=== PATIENT | male | born 1955 | race Caucasian/White ===

== ENCOUNTER → 2017-04-18 | Outpatient (CLI) | payer BC ==
[~2017-04-18] VITALS: Ht 175.3 cm; Wt 91.2 kg
[~2017-04-18] MED LIST: ADULT LOW DOSE81 MG PO; ATROVENT15 ML NS; BUPROPION XL150 MG PO; CARISOPRODOL 3350 MG PO; CELEBREX 200 M200 MG PO; DIAZEPAM 5 MG5 MG PO; FISH OIL 500 M1 EACH PO; FLONASE 0.05%50 MCG NASAL; LEVOTHROID175 MCG PO; LEVOTHYROXINE0.2 M1 PO; LEVOXYL PO; LIALDA1.2 GM PO; LISINOPRIL40 MG PO; LYRICA100 MG PO; LYRICA150 MG PO; MELOXICAM7.5 MG PO; MULTIVITAMINS; NEURONTIN 300300 M1 PO; OMEPRAZOLE20 M2 PO; PREDNISONE 20 M20 M1 PO; PREDNISONE 5 MG5 M1 PO; SKELAXIN 800 M800 M1 PO; TAMSULOSIN HCL0.4 MG PO; TRAMADOL 50 MG50 MG PO; TYLENOL EX-STR500 M2 PO; VITAMIN D3400 UNIT PO; ZYRTEC10 MG PO
--- NOTE | ~2017-04-18 | HPC ---
[facility] [place] [address] PAIN MANAGEMENT CONSULTATION Name: MILLER HOUSE Room #: REG EITAN Guerin#: [id number] Admission: 04/18/17 Attend Phys: Fab Worrell DO Discharge: Date of : 57 Report #: [id number] THIS REPORT FOR: //name// CC: Rocky Worrell DATE OF SERVICE: 04/18/2017 REFERRING PHYSICIAN: Castillo Mcarthur MD CHIEF COMPLAINT: Low back pain, bilateral lower extremity pain with paresthesias. HISTORY OF PRESENT ILLNESS: As you know, the patient is a 61-year-old male originally referred to our clinic by Dr. Mcarthur, his orthopedic surgeon for low back pain, bilateral upper buttock and posterolateral thigh pain. The patient has undergone epidural injections under fluoroscopic guidance with good efficacy. He returns today in followup visit with recurrent pain, now reporting pain score 4/10. He last was seen in our clinic on 01/22/2015. He has been doing fairly well, stating he has been going about his activities of daily living, but then had increasing pain of late with no inciting injury or trauma. He indicates pain is exacerbated with bending, lifting, twisting, sitting in certain positions, and lying down, heat and cold compresses, ice and medications appear to improve pain. He returns today in followup visit requesting epidural injection under fluoroscopic guidance. He is also requesting refills on medications that were provided at last visit. ALLERGIES: AMOXICILLIN, KETOROLAC, HYDROCHLOROTHIAZIDE, and POTASSIUM CLAVULANATE. CURRENT MEDICATIONS: Fluticasone, ipratropium bromide, diazepam, Meloxicam, levothyroxine, Lialda, pregabalin, multivitamin, acetaminophen, tramadol, lisinopril, aspirin, Skelaxin, bupropion, and omeprazole. SOCIAL HISTORY: The patient denies tobacco, alcohol, IV or illicit drug use. He is working, not receiving workmen's compensation, unaccompanied today. IMAGING: No new imaging available. PHYSICAL EXAMINATION: VITAL SIGNS: Blood pressure 131/92, pulse 67, respiratory rate 16 and unlabored, the patient is 98% on room air, height 5 feet 9 inches tall, weight 201 pounds, and BMI calculated 29.7. GENERAL: Well-developed, well-nourished, well-hydrated 61-year-old male, appearing his stated age, placing current pain score at 4/10. [place] [address] PAIN MANAGEMENT CONSULTATION Name: MILLER HOUSE Room #: REG [facility]#: [id number] Admission: 04/18/17 Attend Phys: Fab Worrell DO Discharge: Date of : 57 Report #: [id number] HEENT: Normocephalic, atraumatic. Pupils are equal, round, and reactive to light. Extraocular muscles are intact. Sclerae nonicteric without injection. EXTREMITIES: Show no clubbing, no cyanosis, and no edema. MUSCULOSKELETAL: Lower extremity strength appears equal and symmetrical today 5/5, intact to light touch from L1 through S2 dermatomes. Muscle bulk and tone equal and symmetrical. Seated straight leg raising negative. Supine straight leg raising mildly positive, right greater than left. Marian's test negative. ASSESSMENT: 1. Symptomatic lumbar radiculopathy. 2. Spinal stenosis of lumbar spine, progressively worsening. 3. Displacement of lumbar intervertebral disk with radiculopathy. 4. Lumbosacral spondylosis with radiculopathy. 5. Chronic intractable pain. PLAN: 1. The patient has returned today in followup visit to undergo next in the series of epidural injections under fluoroscopic guidance. The patient has done very well with previous epidural injections, returning today in followup visit to undergo next in the series. He has been advised the risks and benefits of this procedure, these risks include, but are not necessarily limited to bleeding, bruising, infection, worsening of pain, no relief of pain, also risk of temporary or permanent muscle weakness, temporary or permanent nerve damage, possible paralysis and . The patient states understood and wished to proceed. 2. The patient was provided a refill prescription on Meloxicam 7.5 mg 1 tab p.o. b.i.d., I have given the patient #60 tablets, 2 refills. 3. The patient has requested a refill of his diazepam understanding this is not a pain medication, we will provide him with a prescription today, #60 tablets with 1 refill, he then can follow up with his PCP for continuation of this anxiolytic medication. 4. We will see the patient back in followup visit on an as needed basis for possible next in a series of epidural injections. Otherwise, we will see him back for refills of Meloxicam as needed. PROCEDURE NOTE DESCRIPTION OF PROCEDURE: L5-S1 interlaminar epidural steroid injection under fluoroscopic guidance. After obtaining written consent, the patient was taken back to fluoroscopy suite, placed in prone position with pillow under abdomen to decrease lumbar lordosis. Skin overlying lumbosacral area prepped and draped in aseptic fashion. Lumbar intervertebral spaces were identified by AP fluoroscopy. Skin and subcutaneous tissue overlying target site of injection was anesthetized with 3 mL of 1% lidocaine. [address] [address] PAIN MANAGEMENT CONSULTATION Name: MILLER HOUSE Room #: REG [facility] EricRyan#: [id number] Admission: 04/18/17 Attend Phys: Fab Worrell DO Discharge: Date of : 57 Report #: [id number] A 20-gauge 3-1/2-inch Tuohy needle advanced under fluoroscopic guidance towards the epidural space using a paramedian approach. Epidural space identified using loss of resistance to air technique. After negative aspiration for heme or cerebrospinal fluid, 1 mL of Omnipaque was injected. Lumbar epidurogram was confirmed using both AP and lateral fluoroscopy. After negative aspiration for heme or cerebrospinal fluid, 5 mL of a solution containing 2 mL 40 mg per mL, 80 mg total triamcinolone, 3 mL lidocaine 1% injected slowly. Needle retracted penitent[facility], needle tract flushed 3 mL 1% lidocaine. Needle then removed. Sterile bandage placed over injection site, no new motor deficits present in lower extremity following the procedure. The patient tolerated the procedure well, carefully escorted to the recovery room in stable condition. No apparent complications. After meeting discharge criteria, the patient discharged home. By: [id number] Fab Worrell DO /nt
[2017-04-18 08:24] VITALS: BP 131/92
== END | disposition home or self-care (01) ==
LOC: PAIN 07:06
DX: M51.16 Intervertebral disc disorders with radiculopathy, lumbar region (principal); M48.06 Spinal stenosis, lumbar region; M47.27 Other spondylosis with radiculopathy, lumbosacral region; G89.29 Other chronic pain; Z79.899 Other long term (current) drug therapy; Z88.8 Allergy status to other drugs, medicaments and biological substances

== ENCOUNTER → 2017-11-21 | Outpatient (CLI) | payer BC ==
[~2017-11-21] VITALS: Ht 175.3 cm; Wt 92.3 kg
[~2017-11-21] MED LIST changes: +ATORVASTATIN CA40 MG PO
--- NOTE | ~2017-11-21 | HPC ---
[facility] [address] [place] [address] PAIN MANAGEMENT CONSULTATION Name: MILLER HOUSE Room #: REG EITAN Guerin#: [id number] Admission: 11/21/17 Attend Phys: Fab Worrell DO Discharge: Date of : 57 Report #: [id number] THIS REPORT FOR: //name// CC: Rocky Worrell DATE OF SERVICE: 11/21/2017 CHIEF COMPLAINT: Low back pain, bilateral lower extremity pain with paresthesias. HISTORY OF PRESENT ILLNESS: As you know, the patient is a 62-year-old male who returns today in followup visit per the request of his orthopedic surgeon for evaluation for recurrent low back pain, bilateral lower extremity pain with paresthesias. The patient has undergone epidural injections with good benefit in the past. Most recent injection provided 100% improvement in overall pain for greater than 3 months. He has had a slow and progressive return of symptoms over the past 5 months, leading to pain level today of 8/10. He returns stating his pain is chronic in nature, describes the pain as aching and sore. Bending, lifting, twisting, sitting in certain positions exacerbate symptoms. Lying down, cold compresses, heat compresses, ice and medications as well as epidural injections improve pain. He returns requesting epidural injection under fluoroscopic guidance and to receive refills of his Skelaxin and diazepam. ALLERGIES: AMOXICILLIN, KETOROLAC, HYDROCHLOROTHIAZIDE AND POTASSIUM CLAVULANATE. CURRENT MEDICATIONS: Atorvastatin 40 mg per day, meloxicam 7.5 mg twice a day, diazepam 5 mg p.r.n., tamsulosin 0.4 mg once a day, cetirizine 10 mg per day, fluticasone 2 sprays each nostril per day, ipratropium bromide twice a day, levothyroxine 175 mcg per day, Lialda 1.2 grams daily, pregabalin 100 mg once a day, multivitamin 1 tab per day, Tylenol Extra Strength 500 mg 3 times a day, tramadol 50 mg 1-2 tabs every 6 hours p.r.n. for pain, Skelaxin 800 mg per day, aspirin 81 mg per day, Zestril 40 mg per day, bupropion 150 mg once a day, omeprazole 20 mg once a day. SOCIAL HISTORY: The patient denies tobacco, alcohol, IV or illicit drug use. He is working, not receiving workmen's compensation, unaccompanied today. IMAGING: No new imaging available. PHYSICAL EXAMINATION: VITAL SIGNS: Blood pressure 146/75, pulse 86, respiratory rate 16, unlabored. The patient is 95% on room air. Height 5 feet 9 inches tall, weight 203.4 [place] [address] PAIN MANAGEMENT CONSULTATION Name: MILLER HOUSE Room #: REG [facility] Apoorva#: [id number] Admission: 11/21/17 Attend Phys: Fab Worrell DO Discharge: Date of : 57 Report #: [id number] pounds, BMI calculated 30.0. GENERAL: Well-developed, well-nourished, well-hydrated 62-year-old male appearing stated age, placing current pain score at 8/10. HEENT: Normocephalic, atraumatic. Pupils equal, round, reactive to light. EXTREMITIES: Show no clubbing, no cyanosis, no edema. MUSCULOSKELETAL: Lower extremity strength is symmetrical 5/5, intact to light touch from L1 through S2 dermatomes. Muscle bulk and tone equal and symmetrical in lower extremities. Seated straight leg raising negative. Supine straight leg raising mildly positive, right side. Marian test negative. Gait is normal. ASSESSMENT: 1. Symptomatic lumbar radiculopathy. 2. Spinal stenosis of the lumbar spine. 3. Displacement of lumbar intervertebral disk with radiculopathy. 4. Lumbosacral spondylosis with radiculopathy. 5. Chronic intractable pain. PLAN: 1. The patient returns today in followup visit requesting to undergo epidural injection under fluoroscopic guidance. The patient has noted good benefit with previous epidural injection and 100% improvement in overall pain lasting for greater than 3 months with a slow and progressive return of symptoms. He has been advised risks and benefits of the procedure, states he understood and wished to proceed. 2. The patient was provided a prescription of Skelaxin 800 mg dose 1 tab p.o. b.i.d. p.r.n. muscle spasms, given the patient #60 tablets, 2 refills. 3. The patient was provided prescription of diazepam 5 mg dose 1 tab p.o. b.i.d. p.r.n. anxiety, #60 tablets, 1 refill. The patient will need to follow up with his PCP for continuation of this medication as this is not considered an analgesic medication and should not be provided by the pain clinics. 4. The patient will return to our clinic on an as needed basis for next in a series of epidural injections. <ELECTRONICALLY SIGNED> By: Fab Worrell DO 11/27/17 0750 [id number] Fab Worrell DO /nt
--- NOTE | ~2017-11-21 | P ---
[facility] [place] [address] [address] [address] PROCEDURE REPORT Name: MILLER HOUSE Room #: REG EITAN Guerin#: [id number] Admission: 11/21/17 Attend Phys: Fab Worrell DO Discharge: Date of : 57 Report #: [id number] THIS REPORT FOR: //name// CC: Rocky Worrell DATE OF SERVICE: 11/21/2017 DESCRIPTION OF PROCEDURE: Lumbar epidural steroid injection under fluoroscopic guidance. This is the first procedure of the third series that the patient is undergoing. After obtaining written consent, the patient was taken back to the fluoroscopy suite, placed in a prone position with pillow under the abdomen to decrease lumbar lordosis. The skin overlying the lumbosacral area was then prepped and draped in aseptic fashion. The L5-S1 vertebral interspace was then identified by AP fluoroscopy. The skin and subcutaneous tissue overlying the target site of injection was anesthetized with 3 mL 1% lidocaine. A 20-gauge 3-1/2-inch Tuohy needle was then advanced under fluoroscopic guidance towards the epidural space using a paramedian approach. The epidural space was identified using loss of resistance to air technique. After negative aspiration for heme or cerebrospinal fluid, a total of 1 mL of Omnipaque was injected. A lumbar epidurogram was confirmed using both AP and lateral fluoroscopy. After negative aspiration for heme or cerebrospinal fluid, 5 mL of a solution containing 2 mL 40 mg per mL, 80 mg total triamcinolone, 3 mL lidocaine 1% was injected in increments. Contrast spread was noted posterior epidural space. The needle was then retracted approximately half way and needle tract flushed with 1 mL of 1% lidocaine. Needle was then removed. There were no apparent sensory or motor deficits in the lower extremity following the procedure. A sterile bandage was placed over the injection site. The heart rate, pulse, oximetry and blood pressure were continuously monitored after the procedure. There were no apparent complications. The patient tolerated the procedure well and was carefully escorted to the recovery room in stable condition. There were no apparent complications. After meeting discharge criteria, the patient was then discharged home. <ELECTRONICALLY SIGNED> By: Fab Worrell DO 11/27/17 0750 [id number] Fab Worrell DO /nt
[2017-11-21 08:18] VITALS: BP 128/58
== END | disposition home or self-care (01) ==
LOC: PAIN 06:17
DX: M51.16 Intervertebral disc disorders with radiculopathy, lumbar region (principal); M48.061 Spinal stenosis, lumbar region without neurogenic claudication; G89.29 Other chronic pain; M47.27 Other spondylosis with radiculopathy, lumbosacral region; Z68.30 Body mass index [BMI] 30.0-30.9, adult; Z88.8 Allergy status to other drugs, medicaments and biological substances; Z88.0 Allergy status to penicillin; Z79.899 Other long term (current) drug therapy